=== PATIENT | female | born 1990 | race Caucasian/White ===

== ENCOUNTER 2018-11-17 09:31 | Emergency (ER) | payer BC, MEDICAID ==
[2018-11-17 09:43] VITALS: BP 133/88
--- NOTE | 2018-11-17 10:21 | ER Document Report ---
HPI - HPI Time Seen by Provider: 11/17/18 10:10 Pain Level: 3 Notes: 28-year-old female presents the ED for evaluation of sore throat, headache, sore throat and productive cough has been getting worse for the last 3 days but notably worse last night. Decreased eating and drinking without issues. Is tried [id number] medications without relief. Denies fevers but reports chills. No nausea vomiting or diarrhea, no neck pain, wheezing. has had sick contacts. Worse with time, nothing makes better. No rashes vaccinations up-to-date, last menstrual period was approximately 2 weeks ago. Denies fevers, chills, chest pain,palpitations, shortness of breath, dyspnea, nausea, vomiting, diarrhea, abdominal pain, hematuria,blurred vision, double vision, loss of vision, speech changes, LH, dizziness, syncope,wheezing, neck pain, weakness, bowel or bladder dysfunction, saddle anesthesia, numbness or tingling in bilateral upper or lower extremities equally, muscle paralysis, weakness in bilateral upper or lower extremities equally or rash. - REPRODUCTIVE Reproductive: DENIES: : - DERM Skin Color: Normal Past Medical History - General Information source: Patient - Social History Smoking Status: Never Smoker Chew tobacco use (# tins/day): No Frequency of alcohol use: None Family History: Reviewed & Not Pertinent Patient has suicidal ideation: No Patient has homicidal ideation: No Pulmonary Medical History: Reports: Hx Asthma Neurological Medical History: Reports: Hx Migraine Renal/ Medical History: Denies: Hx Peritoneal Dialysis GI Medical History: Reports: Hx Gastroesophageal Reflux Disease Psychiatric Medical History: Reports: Hx Attention Deficit Hyperactivity Disorder, Hx Bipolar Disorder, Hx Depression - depression last year., Hx Schizophrenia - Immunizations Hx Diphtheria, Pertussis, Tetanus Vaccination: Yes - Jan 2014 Vertical Provider Document - CONSTITUTIONAL Agree With Documented VS: Yes Notes: PHYSICAL EXAMINATION: GENERAL: Well-appearing, well-nourished and in no mild distress HEAD: Atraumatic, normocephalic. EYES: Pupils equal round and reactive to light, extraocular movements intact, conjunctiva are normal. ENT: TM intact with bilateral serous effusion, no erythema. Nares boggy bilaterally, oropharynx with erythema without exudates. Moist mucous membranes. NECK: Normal range of motion, supple without lymphadenopathy LUNGS: Breath sounds clear to auscultation bilaterally and equal. No wheezes rales or rhonchi. HEART: Regular rate and rhythm without murmurs ABDOMEN: Soft, nontender, nondistended abdomen. No guarding, no rebound. No masses appreciated. Female : deferred Musculoskeletal: Normal range of motion, no pitting or edema. No cyanosis. NEUROLOGICAL: Cranial nerves grossly intact. Normal speech, normal gait. Normal sensory, motor exams PSYCH: Normal mood, normal affect. SKIN: Warm, Dry, normal turgor, no rashes or lesions noted. - INFECTION CONTROL TRAVEL OUTSIDE OF THE [place] IN LAST 30 DAYS: No Course - Re-evaluation Re-evalutation: 11/17/18 10:20 Presentation is most consistent with a viral upper respiratory infection. Patient is overall well appearance, vitals within normal limits, well-hydrated. Patient denies any headache, neck pain, and has no evidence of meningismus on examination. Lungs are clear bilaterally. No evidence of respiratory distress. Based on clinical exam and history, I do not suspect an acute pneumonia, meningitis, strep pharyngitis, or an acute encephalitis. Rapid strep negative, chest x-ray negative for any acute findings. Will discharge patient with return precautions and followup recommendations. They are in agreement this plan have verbalized understanding return precautions. - Vital Signs Vital signs: Temp Pulse Resp BP Pulse Ox 98.2 F 94 17 133/88 H 97 11/17/18 09:42 11/17/18 09:42 11/17/18 09:42 11/17/18 09:42 11/17/18 09:42 Discharge - Discharge Clinical Impression: Viral URI with cough Condition: Stable Disposition: HOME, SELF-CARE Instructions: Viral Syndrome ([facility]), Upper Respiratory Infection, Infant or Child ([facility]), Upper Respiratory Illness ([facility]), Acetaminophen, Sore Throat ([facility]) Additional Instructions: Viral Syndrome The physician has diagnosed a viral infection. Viruses not only cause "colds," but can cause many different symptoms including generalized aching, fever, headache, cough, diarrhea, nausea, vomiting, and fatigue. The treatment, for the most part, is simply relief of symptoms. This means that antibiotics are usually not given. Rest, fluids, pain medications and, occasionally, medication for the specific symptoms that are most bothersome will be prescribed. Use good handwashing to avoid passing the virus to others. Shared toys should be cleaned with disinfectant. Clean the toilets, sinks, and counter surfaces in bathrooms. Launder clothing in hot water. Contact the physician if you develop any new or unusual symptoms such as severe headache, stiff neck, high fever, chest pain, productive cough, or shortness of breath. You should be rechecked if you don't see marked improvement within seven to 10 days. Rapid strep and your chest x-ray were negative for any acute findings. Follow-up with primary care provider in the next 24 to 48 hours. Return immediately for any new or worsening symptoms. Follow up with primary care provider, call tomorrow to make followup appointment. Prescriptions: Albuterol Sulfate [Proair Respiclick] 90 mcg IH Q4HP PRN #1 [email or web address] PRN Reason: Forms: Return to Work Referrals: EMILY MOELLER MD [ACTIVE STAFF] - Follow up in 3-5 days
--- NOTE | 2018-11-17 11:11 | RADIOLOGY REPORT (SQ) ---
EXAM DESCRIPTION: CHEST 2 VIEWS COMPLETED DATE/TIME: 11/17/2018 10:58 am REASON FOR STUDY: cough COMPARISON: 01/30/2013 EXAM PARAMETERS: NUMBER OF VIEWS: two views TECHNIQUE: Digital Frontal and Lateral radiographic views of the chest acquired. RADIATION DOSE: NA LIMITATIONS: none FINDINGS: LUNGS AND PLEURA: No opacities, masses or pneumothorax. No pleural effusion. MEDIASTINUM AND HILAR STRUCTURES: No masses or contour abnormalities. HEART AND VASCULAR STRUCTURES: Heart normal size. No evidence for failure. BONES: No acute findings. HARDWARE: None in the chest. OTHER: No other significant finding. IMPRESSION: NO ACUTE RADIOGRAPHIC FINDING IN THE CHEST. TECHNICAL DOCUMENTATION: JOB ID: [id number] [employer]- All Rights Reserved Reading location - IP/workstation name: [email or web address]
== END 2018-11-17 12:22 | disposition home or self-care (01) ==
LOC: EEVIPCON 09:31 → ER 09:31
DX: J06.9 Acute upper respiratory infection, unspecified (principal); R05 Cough; R51 Headache; J45.909 Unspecified asthma, uncomplicated
CPT/HCPCS: 71046; 87070; 87077; 87880; 99283

== ENCOUNTER 2018-12-24 13:57 | Emergency (ER) | payer MEDICAID ==
[2018-12-24 14:03] VITALS: BP 111/75
[2018-12-24] MEDS ORDERED: CEPHALEXIN 500 MG CAPSULE PO ONE (14:11)
[2018-12-24] MEDS ORDERED: DEXAMETHASONE SOD PHOSPHATE INJ 4 MG/1 ML VIAL IM ONE (14:11)
[2018-12-24] MEDS ORDERED: DIPHENHYDRAMINE HCL 25 MG CAPSULE PO ONE (14:11)
--- NOTE | 2018-12-24 14:15 | ER Document Report ---
HPI - HPI Patient complains to provider of: Poison mesha Time Seen by Provider: 12/24/18 14:07 Onset: Last week Onset/Duration: Persistent Quality of pain: No pain Pain Level: 1 - Itchy Context: This 28-year-old female presents to the emergency department via EMS for reports of poison mesha. Reports she was camping last week and was exposed to poison mesha. She been taking Benadryl and applying Caladryl without relief of symptoms. She has generalized poison mesha to bilateral upper and lower extremities. No fever vomiting diarrhea. Associated Symptoms: None Exacerbated by: Denies Relieved by: Denies Similar symptoms previously: No Recently seen / treated by doctor: No - CONSTITUTIONAL Constitutional: DENIES: Fever, Chills - REPRODUCTIVE Reproductive: DENIES: : Past Medical History - General Information source: Patient Last Menstrual Period: - Social History Smoking Status: Never Smoker Chew tobacco use (# tins/day): No Frequency of alcohol use: None Drug Abuse: None Family History: Reviewed & Not Pertinent Patient has suicidal ideation: No Patient has homicidal ideation: No Pulmonary Medical History: Reports: Hx Asthma Neurological Medical History: Reports: Hx Migraine Renal/ Medical History: Denies: Hx Peritoneal Dialysis GI Medical History: Reports: Hx Gastroesophageal Reflux Disease Psychiatric Medical History: Reports: Hx Attention Deficit Hyperactivity Disorder, Hx Bipolar Disorder, Hx Depression - depression last year., Hx Schizophrenia Past Surgical History: Reports: Other - Lung surgery - Immunizations Hx Diphtheria, Pertussis, Tetanus Vaccination: Yes - Jan 2014 Vertical Provider Document - CONSTITUTIONAL Agree With Documented VS: Yes Exam Limitations: No Limitations General Appearance: WD/WN, No Apparent Distress - INFECTION CONTROL TRAVEL OUTSIDE OF THE [place] IN LAST 30 DAYS: No - HEENT HEENT: Atraumatic, Normocephalic - NECK Neck: Supple - RESPIRATORY Respiratory: Breath Sounds Normal, No Respiratory Distress - CARDIOVASCULAR Cardiovascular: Regular Rate - MUSCULOSKELETAL/EXTREMETIES Musculoskeletal/Extremeties: MAEW, FROM, Non-Tender - NEURO Level of Consciousness: Awake, Alert, Appropriate Motor/Sensory: No Motor Deficit - DERM Integumentary: Warm, Dry, Rash - Scattered generalized rash noted to upper and lower extremities bilaterally, in the webs of her toes, No erythema warmth or discharge no open sores. Course - Re-evaluation Re-evalutation: 12/24/18 14:58 This 28-year-old female presents via EMS for poison mesha rash for 1 week. As I enter the exam room patient was going through the drawers pulling out supplies. She was instructed to not do this, supplies were returned. Patient reports she is Caladryl for the poison mesha rash without relief of symptoms. She was prescribed Decadron some clindamycin and instructed take Benadryl Burow solution Caladryl. She verbalized understanding to all instructions. Dictation of this chart was performed using voice recognition software; therefore, there may be some unintended grammatical errors. - Vital Signs Vital signs: Temp Pulse Resp BP Pulse Ox 98.5 F 74 18 111/75 96 12/24/18 14:02 12/24/18 14:02 12/24/18 14:02 12/24/18 14:02 12/24/18 14:02 Discharge - Discharge Clinical Impression: Poison mesha Condition: Stable Disposition: HOME, SELF-CARE Instructions: Clindamycin ([facility]), Use of Diphenhydramine, Poison Mesha ([facility]), Steroid Medication Injection Additional Instructions: *You have been treated for POISON MESHA *Take medication as prescribed, take benadryl as indicated *apply caladryl as indicated, burrows solution as indicated *Monitor your skin for signs of infection such as increasing pain, redness, swelling, warmth *Try not to itch. Take cool showers stay away from hot showers. Apply cool packs to areas that really itch. Cut your nails. *Follow up with a primary care provider within 1 week for recheck *Return to ED for signs of infection, worsening condition, changes, needs Prescriptions: Clindamycin HCl [Cleocin 150 mg Capsule] 150 mg PO Q6 #20 capsule
[2018-12-24] MEDS ORDERED: CLINDAMYCIN HCL 150 MG CAPSULE PO ONE (14:17)
== END 2018-12-24 14:30 | disposition home or self-care (01) ==
LOC: ER 13:57
DX: L23.7 Allergic contact dermatitis due to plants, except food (principal)
CPT/HCPCS: J3490 ×2; J1100; 96374; 99283

== ENCOUNTER 2018-12-26 21:25 | Emergency (ER) | payer MEDICAID ==
[2018-12-27 00:08] VITALS: BP 124/77
[2018-12-27] MEDS ORDERED: DIPHENHYDRAMINE HCL 50 MG CAPSULE PO ONE (00:16)
--- NOTE | 2018-12-27 00:21 | ER Document Report ---
HPI - HPI Patient complains to provider of: rash Time Seen by Provider: 12/27/18 00:06 Pain Level: 3 Context: Patient is a 28-year-old female presents to the emergency department for continued itching and "worse rash." Patient was seen at this facility on 12/24/2018 for poison marly. Was given a dose of Decadron in the emergency department and sent home with clindamycin some of her lesions were deemed to be potentially bacterial in nature. Patient states the rash has spread now to her lower chin. States it has spread now "all over my arms, all over my legs, my butt, and really bad on my back." Patient states she is been taking antibiotics as prescribed. States she is also been applying calamine lotion. Patient is denying any fevers, respiratory distress, vomiting. - REPRODUCTIVE Reproductive: DENIES: : Past Medical History - General Information source: Patient - Social History Smoking Status: Unknown if Ever Smoked Family History: Reviewed & Not Pertinent Pulmonary Medical History: Reports: Hx Asthma Neurological Medical History: Reports: Hx Migraine Renal/ Medical History: Denies: Hx Peritoneal Dialysis GI Medical History: Reports: Hx Gastroesophageal Reflux Disease Psychiatric Medical History: Reports: Hx Attention Deficit Hyperactivity Disorder, Hx Bipolar Disorder, Hx Depression - depression last year., Hx Schizophrenia Past Surgical History: Reports: Other - Lung surgery - Immunizations Hx Diphtheria, Pertussis, Tetanus Vaccination: Yes - Jan 2014 Vertical Provider Document - CONSTITUTIONAL Agree With Documented VS: Yes Notes: GENERAL: Alert, interacts well. No acute distress. HEAD: Normocephalic, atraumatic. EYES: Pupils equal, round, and reactive to light. Extraocular movements intact. ENT: Oral mucosa moist, tongue midline. NECK: Full range of motion. Supple. Trachea midline. LUNGS: Clear to auscultation bilaterally, no wheezes, rales, or rhonchi. No respiratory distress. HEART: Regular rate and rhythm. No murmur ABDOMEN: Soft, non-tender. Non-distended. Bowel sounds present in all 4 quadrants. EXTREMITIES: Moves all 4 extremities spontaneously. No edema, normal radial and dorsalis pedis pulses bilaterally. No cyanosis. BACK: no cervical, thoracic, lumbar midline tenderness. No saddle anesthesia, normal distal neurovascular exam. NEUROLOGICAL: Alert and oriented x3. Normal speech. cranial nerves II through XII grossly intact PSYCH: Normal affect, normal mood. SKIN: Warm, dry, normal turgor. Vesicular lesions noted all over patient's bilateral upper extremities and lower extremities. There are some excoriated lesions noted around patient's ankles, consistent with impetigo bullous. Patient also has distinct vesicular lesions and erythema noted on her left flank radiating around to her left abdomen. It does not cross her spine and does follow a dermatome. - INFECTION CONTROL TRAVEL OUTSIDE OF THE [place] IN LAST 30 DAYS: No Course - Re-evaluation Re-evalutation: 12/27/18 00:35 Patient is adamant that she was out walking around in the [facility] for "a long time." Which is where she feels as though she got the poison marly. States the rash in her left side did start yesterday and has intensified in pain, not necessarily itching. I discussed with patient use of oral steroids for continued care of her poison marly. I have also discussed potential diagnosis of shingles based on physical exam findings. Patient shows no signs of anaphylaxis. At this time will discharge with return precautions and follow-up recommendations. Verbal discharge instructions given a the bedside and opportunity for questions given. Medication warnings reviewed. Patient is in agreement with this plan and has verbalized understanding of return precautions and the need for primary care follow-up in the next 24-72 hours. This medical record was dictated with voice recognizing software. There may be grammatical, syntax errors that are unintended. - Vital Signs Vital signs: Temp Pulse Resp BP Pulse Ox 98.4 F 77 18 111/77 97 12/26/18 21:33 12/26/18 21:33 12/26/18 21:33 12/26/18 21:33 12/26/18 21:33 Discharge - Discharge Clinical Impression: Poison marly dermatitis Shingles Qualifiers: Herpes zoster complications: unspecified herpes zoster complication Qualified Code(s): B02.8 - Zoster with other complications Condition: Stable Disposition: HOME, SELF-CARE Instructions: Corticosteroid Medication ([facility]), Use of Diphenhydramine, Shingles ([facility]) Additional Instructions: As we discussed you have been seen and treated in the emergency department for poison marly. Based on part of your exam you may also have shingles. Please take pain medication as needed for generalized pain. Please continue to take 50 mg of Benadryl every 6 hours for generalized itching. Please take steroids as prescribed. Please take antiviral medications as prescribed. Please follow-up with your primary care provider in the next 24 to 48 hours. Please return to the emergency room for any further concerns. Prescriptions: Acyclovir [Acyclovir 400 mg Tablet] 800 mg PO Q4 7 Days tablet Hydrocodone/Acetaminophen [Morgan 5-325 mg Tablet] 1 tab PO Q6 PRN #20 tablet PRN Reason: Prednisone [Deltasone 20 mg Tablet] 20 mg PO DAILY 21 Days #42 tablet Forms: Return to Work
== END 2018-12-27 00:34 | disposition home or self-care (01) ==
LOC: ER 21:25
DX: L23.7 Allergic contact dermatitis due to plants, except food (principal); B02.8 Zoster with other complications; R21 Rash and other nonspecific skin eruption; J45.909 Unspecified asthma, uncomplicated
CPT/HCPCS: 99283

== ENCOUNTER 2019-03-06 13:01 | Emergency (ER) | payer MEDICAID ==
[2019-03-06] MEDS ORDERED: NORMAL SALINE 1000 ML 1,000 ML IV ONE (13:12)
--- NOTE | 2019-03-06 13:12 | ER Document Report ---
ED Medical Screen (RME) - General Chief Complaint: Drug Abuse Stated Complaint: WITHDRAWLS Time Seen by Provider: 03/06/19 13:08 Mode of Arrival: Ambulatory Information source: Patient Notes: 28-year-old female presented to ED for withdrawal from Suboxone and a abscess to her right buttocks. She is very tearful and anxious. She is concerned that her boyfriend does not know that she is here. We have put her opted out. She states she was using the Suboxone to try to get off of the crack in her urine. She states she used crack last last night and the heroin either last night or the night before she is not sure which. States she also uses marijuana use of any baths. States she does not drink alcohol states she does not smoke cigarettes. She states she has had a off and on. For the last couple days. She is on Zoloft and Latuda that are prescribed I have greeted and performed a rapid initial assessment of this patient. A comprehensive ED assessment and evaluation of the patient, analysis of test results and completion of medical decision making process will be conducted by an additional ED providers. TRAVEL OUTSIDE OF THE [place] IN LAST 30 DAYS: No - Related Data Allergies/Adverse Reactions: Penicillins Allergy (Unknown, Verified 03/06/19 13:08) Sulfa (Sulfonamide Antibiotics) Allergy (Unknown, Verified 03/06/19 13:08) Past Medical History Pulmonary Medical History: Reports: Hx Asthma Neurological Medical History: Reports: Hx Migraine Renal/ Medical History: Denies: Hx Peritoneal Dialysis GI Medical History: Reports: Hx Gastroesophageal Reflux Disease Psychiatric Medical History: Reports: Hx Attention Deficit Hyperactivity Disorder, Hx Bipolar Disorder, Hx Depression - depression last year., Hx Schizophrenia Past Surgical History: Reports: Other - Lung surgery - Immunizations Hx Diphtheria, Pertussis, Tetanus Vaccination: Yes - Jan 2014
[2019-03-06 14:06] LABS: ABSOLUTE BASOPHILS # (AUTO) 0.1 10^3/uL (0.0-0.2); ABSOLUTE EOSINOPHILS # (AUTO) 0.1 10^3/uL (0.0-0.6); ABSOLUTE LYMPHOCYTES (AUTO) 1.8 10^3/uL (0.5-4.7); ABSOLUTE NEUT (AUTO) 10.6 10^3/uL (1.7-8.2); BASOPHILS % (AUTO) 0.5 % (0-2); HEMATOCRIT 40.4 % (36.0-47.0); HEMOGLOBIN 13.3 g/dL (12.0-15.5); LYMPHOCYTES % (AUTO) 13.2 % (13-45); MEAN CORPUSCULAR HEMOGLOBIN 27.2 pg (27.0-33.4); MEAN CORPUSCULAR VOLUME 83 fl (80-97); MONOCYTES % (AUTO) 7.3 % (3-13); PLATELET COUNT 384 10^3/uL (150-450); RED CELL DISTRIBUTION WIDTH 13.3 % (11.5-14.0); TOTAL CELLS COUNTED % (AUTO) 100 %; WHITE BLOOD COUNT 13.5 10^3/uL (4.0-10.5)
[2019-03-06 14:30] LABS: ALBUMIN 3.3 g/dL (3.5-5.0); ALKALINE PHOSPHATASE 86 U/L (38-126); ASPARTATE AMINO TRANSFERASE 16 U/L (14-36); CARBON DIOXIDE 27 mmol/L (22-30); CHLORIDE 101 mmol/L (98-107)
[2019-03-06 14:50] LABS: APPEARANCE,URINE TURBID; BILIRUBIN,URINE NEGATIVE (NEGATIVE); COLOR,URINE YELLOW; GLUCOSE, URINE NEGATIVE (NEGATIVE); KETONES,URINE 20 mg/dL (NEGATIVE); LEUKOCYTE ESTERASE,URINE TRACE (NEGATIVE); NITRITE,URINE NEGATIVE (NEGATIVE); PROTEIN,URINE 30 mg/dL (NEGATIVE); URINE SPECIFIC GRAVITY 1.025; UROBILINOGEN,URINE NEGATIVE mg/dL (<2.0)
[2019-03-06] MEDS ORDERED: LIDOCAINE 1% INJ-PF (10 MG/ML) 30 ML SDV INJ ONE (14:54)
[2019-03-06 14:56] LABS: ANION GAP 10 (5-19); BILIRUBIN,TOTAL 0.3 mg/dL (0.2-1.3); BLOOD UREA NITROGEN 5 mg/dL (7-20); GLUCOSE 90 mg/dL (75-110); POTASSIUM 3.6 mmol/L (3.6-5.0)
[2019-03-06 14:57] LABS: ACETAMINOPHEN < 10 ug/mL (10-30); ALCOHOL < 10 mg/dL (NONE DETECTED)
[2019-03-06 14:58] LABS: SALICYLATE < 1.0 mg/dL (2.0-20.0)
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
[2019-03-06 15:07] LABS: URINE AMPHETAMINES SCREEN NEGATIVE; URINE BARBITURATES SCREEN NEGATIVE; URINE BENZODIAZEPINES SCREEN NEGATIVE; URINE COCAINE SCREEN UNCONFIRMED POSITIVE; URINE MARIJUANA (THC) SCREEN UNCONFIRMED POSITIVE; URINE METHADONE SCREEN NEGATIVE; URINE PHENCYCLIDINE SCREEN NEGATIVE
[2019-03-06 15:08] LABS: BILIRUBIN,DIRECT 0.1 mg/dL (0.0-0.4)
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
[2019-03-06] MEDS ORDERED: CLINDAMYCIN HCL 150 MG CAPSULE PO ONE (16:38)
[2019-03-06 18:03] VITALS: BP 130/76
--- NOTE | 2019-03-07 02:20 | EKG REPORT ---
SEVERITY:- BORDERLINE ECG - SINUS RHYTHM PROBABLE LEFT ATRIAL ABNORMALITY BORDERLINE T WAVE ABNORMALITIES : Confirmed by: Dario El 07-Mar-2019 02:18:33
== END 2019-03-06 18:07 | disposition home or self-care (01) ==
LOC: EEVIPCON 13:01 → ER 13:01
DX: F19.10 Other psychoactive substance abuse, uncomplicated (principal); L02.31 Cutaneous abscess of buttock; F31.9 Bipolar disorder, unspecified; F60.3 Borderline personality disorder; F17.200 Nicotine dependence, unspecified, uncomplicated; Z88.0 Allergy status to penicillin; Z88.2 Allergy status to sulfonamides
CPT/HCPCS: 93005; 99285; 96360; 36415; 87070; 87205; 80307 ×4; 84703; 85025; 87077; 80053; 81001; 87186; 93010; 10060; A6266; J3490 ×2; J7030

== ENCOUNTER → 2019-06-15 | Outpatient (CLI) | payer MEDICAID ==
--- NOTE | 2019-06-15 17:27 | RADIOLOGY REPORT (SQ) ---
EXAM DESCRIPTION: CT ABD/PELVIS NO ORAL OR IV COMPLETED DATE/TIME: 06/15/2019 5:12 pm REASON FOR STUDY: R10.9 UNSPECIFIED ABDOMINAL PAIN R10.9 UNSPECIFIED ABDOMINAL PAIN COMPARISON: None. TECHNIQUE: CT scan of the abdomen and pelvis performed without intravenous or oral contrast. Images reviewed with lung, soft tissue, and bone windows. Reconstructed coronal and sagittal MPR images revi ewed. All images stored on PACS. All CT scanners at this facility use dose modulation, iterative reconstruction, and/or weight based d osing when appropriate to reduce radiation dose to as low as reasonably achievable (ALARA). [facility]: Dose Right [facility]: CareDose [facility]: Dose Right [facility]: Teradose 4D [facility]: [employer] RADIATION DOSE: CT Rad equipment meets quality standard of care and radiation dose reduction techniq ues were employed. CTDIvol: 5.7 mGy. DLP: 300 mGy-cm.mGy. LIMITATIONS: None. FINDINGS: LOWER CHEST: Right lateral basilar subpleural scarring. NON-CONTRASTED LIVER, SPLEEN, ADRENALS: Evaluation limited by lack of IV contrast. No identified sign ificant masses. PANCREAS: No masses. No peripancreatic inflammatory changes. GALLBLADDER: No calcified stones. No inflammatory changes to suggest cholecystitis. RIGHT KIDNEY AND URETER: No cysts identified. No solid masses. No calcified stones. No hydronephrosis or hydroureter. LEFT KIDNEY AND URETER: No cysts identified. No solid masses. No calcified stones. No hydronephrosis or hydroureter. AORTA AND RETROPERITONEUM: No aneurysm. No retroperitoneal masses or adenopathy. BOWEL AND PERITONEAL CAVITY: No obvious masses or inflammatory changes. No free fluid. APPENDIX: Normal. PELVIS, BLADDER, AND ABDOMINAL WALL:No abnormal masses. No free fluid. Unremarkable bladder. BONES: No acute findings. OTHER: No other significant finding. IMPRESSION: NO ACUTE FINDINGS. TECHNICAL DOCUMENTATION: JOB ID: [id number] [place]-72 Quality ID # [id number]: Final reports with documentation of one or more dose reduction techniques (e.g., Au tomated exposure control, adjustment of the mA and/or kV according to patient size, use of iterative reconstruction technique) 2010 [employer]- All Rights Reserved Reading location - IP/workstation name: [email or web address]
== END ==
LOC: RAD 17:12
PROVIDERS: ATTEND Nurse Practitioner Family
DX: R10.9 Unspecified abdominal pain (principal)
CPT/HCPCS: 74176

== ENCOUNTER 2019-06-19 14:31 | Emergency (ER) | payer MEDICAID ==
--- NOTE | 2019-06-19 15:03 | ER Document Report ---
ED Medical Screen (RME) - General Chief Complaint: Wound Recheck Stated Complaint: POSSIBLE WOUND INFECTION Time Seen by Provider: 06/19/19 14:53 Primary Care Provider: ASHLEIGH GONZALEZ [Primary Care Provider] - Follow up as needed Mode of Arrival: Ambulatory Information source: Patient Notes: Patient presents with concerns of a possible abscess to the center of her chest. Reports she squeezed it yesterday and slept with an ice pack on her chest all day. Does not look like an abscess no induration. During assessment patient starts eating she feels tired not feeling quite right. Denies fever vomiting diarrhea. Has history of bipolar. I have greeted and performed a rapid initial assessment of this patient. A comprehensive ED assessment and evaluation of the patient, analysis of test results and completion of the medical decision making process will be conducted by additional ED providers. TRAVEL OUTSIDE OF THE [place] IN LAST 30 DAYS: No - Related Data Allergies/Adverse Reactions: Penicillins Allergy (Unknown, Verified 06/19/19 14:46) Sulfa (Sulfonamide Antibiotics) Allergy (Unknown, Verified 06/19/19 14:46) Past Medical History - Social History Drug Abuse: Marijuana Pulmonary Medical History: Reports: Hx Asthma Neurological Medical History: Reports: Hx Migraine Renal/ Medical History: Denies: Hx Peritoneal Dialysis GI Medical History: Reports: Hx Gastroesophageal Reflux Disease Psychiatric Medical History: Reports: Hx Attention Deficit Hyperactivity Disorder, Hx Bipolar Disorder, Hx Depression - depression last year., Hx Schizophrenia Past Surgical History: Reports: Other - Lung surgery - Immunizations Hx Diphtheria, Pertussis, Tetanus Vaccination: Yes - Jan 2014 Physical Exam - Vital signs Vitals: Temp Pulse Resp BP Pulse Ox 98.3 F 81 18 150/81 H 97 06/19/19 14:34 06/19/19 14:34 06/19/19 14:34 06/19/19 14:34 06/19/19 14:34 Course - Vital Signs Vital signs: Temp Pulse Resp BP Pulse Ox 98.3 F 81 18 150/81 H 97 06/19/19 14:34 06/19/19 14:34 06/19/19 14:34 06/19/19 14:34 06/19/19 14:34 Doctor's Discharge - Discharge Referrals: ASHLEIGH GONZALEZ [Primary Care Provider] - Follow up as needed
[2019-06-19 15:28] LABS: ABSOLUTE BASOPHILS # (AUTO) 0.1 10^3/uL (0.0-0.2); ABSOLUTE EOSINOPHILS # (AUTO) 0.5 10^3/uL (0.0-0.6); ABSOLUTE LYMPHOCYTES (AUTO) 2.2 10^3/uL (0.5-4.7); ABSOLUTE MONOCYTES (AUTO) 0.5 10^3/uL (0.1-1.4); ABSOLUTE NEUT (AUTO) 4.8 10^3/uL (1.7-8.2); BASOPHILS % (AUTO) 0.8 % (0-2); EOSINOPHILS % (AUTO) 6.7 % (0-6); HEMATOCRIT 41.2 % (36.0-47.0); HEMOGLOBIN 13.9 g/dL (12.0-15.5); LYMPHOCYTES % (AUTO) 27.2 % (13-45); MEAN CORPUSCULAR HEMOGLOBIN 28.3 pg (27.0-33.4); MEAN CORPUSCULAR HGB CONC 33.7 g/dL (32.0-36.0); MEAN CORPUSCULAR VOLUME 84 fl (80-97); MONOCYTES % (AUTO) 5.7 % (3-13); PLATELET COUNT 356 10^3/uL (150-450); RED BLOOD COUNT 4.91 10^6/uL (3.72-5.28); RED CELL DISTRIBUTION WIDTH 13.4 % (11.5-14.0); SEGMENTED NEUTROPHILS % (AUTO) 59.6 % (42-78); TOTAL CELLS COUNTED % (AUTO) 100 %
[2019-06-19 15:42] LABS: APPEARANCE,URINE CLEAR; BILIRUBIN,URINE NEGATIVE (NEGATIVE); COLOR,URINE COLORLESS; GLUCOSE, URINE NEGATIVE (NEGATIVE); KETONES,URINE NEGATIVE (NEGATIVE); LEUKOCYTE ESTERASE,URINE NEGATIVE (NEGATIVE); NITRITE,URINE NEGATIVE (NEGATIVE); PROTEIN,URINE NEGATIVE (NEGATIVE); URINE SPECIFIC GRAVITY 1.002; UROBILINOGEN,URINE NEGATIVE mg/dL (<2.0)
[2019-06-19 15:58] LABS: URINE AMPHETAMINES SCREEN NEGATIVE; URINE BARBITURATES SCREEN NEGATIVE; URINE BENZODIAZEPINES SCREEN NEGATIVE; URINE COCAINE SCREEN NEGATIVE; URINE MARIJUANA (THC) SCREEN NEGATIVE; URINE METHADONE SCREEN NEGATIVE; URINE PHENCYCLIDINE SCREEN NEGATIVE
[2019-06-19 15:58] LABS: ALBUMIN 3.4 g/dL (3.5-5.0); ALKALINE PHOSPHATASE 80 U/L (38-126); ANION GAP 7 (5-19); ASPARTATE AMINO TRANSFERASE 24 U/L (14-36); BILIRUBIN,DIRECT 0.2 mg/dL (0.0-0.4); BILIRUBIN,TOTAL 0.2 mg/dL (0.2-1.3); BLOOD UREA NITROGEN 10 mg/dL (7-20); CALCIUM 8.7 mg/dL (8.4-10.2); CARBON DIOXIDE 27 mmol/L (22-30); CHLORIDE 103 mmol/L (98-107); GLUCOSE 107 mg/dL (75-110); POTASSIUM 4.3 mmol/L (3.6-5.0); TOTAL PROTEIN 6.2 g/dL (6.3-8.2)
--- NOTE | 2019-06-19 17:21 | ER Document Report ---
ED General - General Chief Complaint: Wound Recheck Stated Complaint: POSSIBLE WOUND INFECTION Time Seen by Provider: 06/19/19 14:53 Primary Care Provider: ASHLEIGH GONZALEZ [NO LOCAL MD] - Follow up as needed Mode of Arrival: Ambulatory Notes: CHIEF COMPLAINT: Scab on anterior chest, nausea HPI: 28-year-old female with history of impetigo type issues presenting for a scabbed area between the breasts over the last 3 days. States it was draining slightly, has stopped draining. She does admit to picking at the area. States she has had nausea with 2 episodes of vomiting in the last 2 to 3 days. No abdominal pain. No chest pain. No shortness of breath. No fever definitively. No dysuria. ROS: See HPI - all other systems were reviewed and are otherwise negative Constitutional: no fever Eyes: no drainage, no blurred vision ENT: no runny nose, no sore throat Cardiovascular: no chest pain Resp: no SOB, no cough GI: Positive vomiting, no diarrhea, no abdominal pain : no dysuria Integumentary: Positive rash Allergy: no hives Musculoskeletal: no extremity pain or swelling Neurological: no numbness/tingling, no weakness MEDICATIONS: I agree with the patient medications as charted by the RN. ALLERGIES: I agree with the allergies as charted by the RN. PAST MEDICAL HISTORY/PAST SURGICAL HISTORY: Reviewed and agree as charted by RN. SOCIAL HISTORY: Reviewed and agree as charted by RN. 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 CONSTITUTIONAL: Alert and oriented and responds appropriately to questions. Well-appearing; well-nourished, no acute distress HEAD: Normocephalic; atraumatic EYES: PERRL; Conjunctivae clear, sclerae non-icteric ENT: normal nose; no rhinorrhea; moist mucous membranes; pharynx without lesions noted NECK: Supple without meningismus; non-tender; no cervical lymphadenopathy, no masses CARD: symmetric distal pulses RESP: Normal chest excursion without splinting or tachypnea. ABD/GI: non-distended; soft, non-tender. BACK: The back appears normal EXT: Normal ROM in all joints; no cyanosis, no effusions, no edema SKIN: Normal color for age and race; warm; dry; good turgor; there is a very tiny erythematous area between the breasts but more adjacent to the right breast at approximately 3:00 overlying an old suture line or scar. No induration. No fluctuance. No surrounding cellulitis. No tenderness. Patient with multiple scabbed areas on the face consistent with acne or impetigo-like illness NEURO: Moves all extremities equally; Motor and sensory function intact PSYCH: The patient's mood and manner are appropriate. Grooming and personal hygiene are appropriate. MDM: 28-year-old female with a small scabbed area adjacent to the right breast but not involving the breast tissue itself. No induration or fluctuant area suggesting need for incision and drainage or imaging. Screening labs ordered from the triage process were all normal. Will place patient on Bactroban, she complains of nausea and had 2 episodes of vomiting this is subjective in nature. Will write patient for Zofran. Labs and urine do not show acute emergent abnormalities and she has no abdominal pain on exam. She was on the phone talking with her sister in no distress when I arrived for her exam TRAVEL OUTSIDE OF THE [place]. IN LAST 30 DAYS: No - Related Data Allergies/Adverse Reactions: Penicillins Allergy (Unknown, Verified 06/19/19 14:46) Sulfa (Sulfonamide Antibiotics) Allergy (Unknown, Verified 06/19/19 14:46) Past Medical History - General Information source: Patient - Social History Smoking Status: Current Every Day Smoker Drug Abuse: Marijuana Family History: Reviewed & Not Pertinent Patient has suicidal ideation: No Patient has homicidal ideation: No Pulmonary Medical History: Reports: Hx Asthma Neurological Medical History: Reports: Hx Migraine Renal/ Medical History: Denies: Hx Peritoneal Dialysis GI Medical History: Reports: Hx Gastroesophageal Reflux Disease Psychiatric Medical History: Reports: Hx Attention Deficit Hyperactivity Disorder, Hx Bipolar Disorder, Hx Depression - depression last year., Hx Schizophrenia Past Surgical History: Reports: Other - Lung surgery - Immunizations Hx Diphtheria, Pertussis, Tetanus Vaccination: Yes - Jan 2014 Physical Exam - Vital signs Vitals: Temp Pulse Resp BP Pulse Ox 98.3 F 81 18 150/81 H 97 06/19/19 14:34 06/19/19 14:34 06/19/19 14:34 06/19/19 14:34 06/19/19 14:34 Course - Vital Signs Vital signs: Temp Pulse Resp BP Pulse Ox 98.3 F 81 18 150/81 H 97 06/19/19 14:34 06/19/19 14:34 06/19/19 14:34 06/19/19 14:34 06/19/19 14:34 - Laboratory Result Diagrams: 06/19/19 15:15 06/19/19 15:15 Laboratory results interpreted by me: 06/19/19 06/19/19 15:15 15:15 Eos % (Auto) 6.7 H Total Protein 6.2 L Albumin 3.4 L Discharge - Discharge Clinical Impression: Impetigo Condition: Stable Disposition: HOME, SELF-CARE Additional Instructions: Take Zofran for nausea. Use the Bactroban as prescribed. Follow-up with your primary care provider for reevaluation call for appointment. Return for worsening redness or swelling or a definitive fever above 101 Prescriptions: Mupirocin Calcium [Bactroban 2% Cream 15 gm] 1 applic TP BID 7 Days #1 tube Ondansetron [Zofran Odt 4 mg Tablet] 1 - 2 tab PO Q4H PRN #15 tab.rapdis PRN Reason: For Nausea/Vomiting Referrals: [facility],NO [NO LOCAL MD] - Follow up as needed
[2019-06-19 17:52] VITALS: BP 127/78
== END 2019-06-19 17:53 | disposition home or self-care (01) ==
LOC: ER 14:31 → EEVIPCON 14:31 → ER 17:53
DX: L01.00 Impetigo, unspecified (principal); F17.200 Nicotine dependence, unspecified, uncomplicated; Z88.0 Allergy status to penicillin; Z88.2 Allergy status to sulfonamides
CPT/HCPCS: 36415; 80053; 80307; 81001; 81025; 85025; 86308; 99283

== ENCOUNTER 2019-06-24 12:08 | Emergency (ER) | payer MEDICAID ==
[2019-06-24 13:34] LABS: APPEARANCE,URINE CLEAR; BILIRUBIN,URINE NEGATIVE (NEGATIVE); COLOR,URINE COLORLESS; GLUCOSE, URINE NEGATIVE (NEGATIVE); KETONES,URINE NEGATIVE (NEGATIVE); LEUKOCYTE ESTERASE,URINE NEGATIVE (NEGATIVE); NITRITE,URINE NEGATIVE (NEGATIVE); PROTEIN,URINE NEGATIVE (NEGATIVE); URINE SPECIFIC GRAVITY 1.003; UROBILINOGEN,URINE NEGATIVE mg/dL (<2.0)
[2019-06-24 13:44] LABS: URINE AMPHETAMINES SCREEN NEGATIVE; URINE BARBITURATES SCREEN NEGATIVE; URINE BENZODIAZEPINES SCREEN NEGATIVE; URINE COCAINE SCREEN NEGATIVE; URINE MARIJUANA (THC) SCREEN NEGATIVE; URINE METHADONE SCREEN NEGATIVE; URINE PHENCYCLIDINE SCREEN NEGATIVE
[2019-06-24 13:59] LABS: ABSOLUTE BASOPHILS # (AUTO) 0.1 10^3/uL (0.0-0.2); ABSOLUTE EOSINOPHILS # (AUTO) 0.2 10^3/uL (0.0-0.6); ABSOLUTE LYMPHOCYTES (AUTO) 2.1 10^3/uL (0.5-4.7); ABSOLUTE MONOCYTES (AUTO) 0.6 10^3/uL (0.1-1.4); ABSOLUTE NEUT (AUTO) 7.8 10^3/uL (1.7-8.2); BASOPHILS % (AUTO) 0.8 % (0-2); EOSINOPHILS % (AUTO) 1.7 % (0-6); HEMATOCRIT 40.6 % (36.0-47.0); HEMOGLOBIN 13.8 g/dL (12.0-15.5); LYMPHOCYTES % (AUTO) 19.4 % (13-45); MEAN CORPUSCULAR HEMOGLOBIN 28.2 pg (27.0-33.4); MEAN CORPUSCULAR VOLUME 83 fl (80-97); MONOCYTES % (AUTO) 5.3 % (3-13); PLATELET COUNT 408 10^3/uL (150-450); RED CELL DISTRIBUTION WIDTH 13.8 % (11.5-14.0); SEGMENTED NEUTROPHILS % (AUTO) 72.8 % (42-78); TOTAL CELLS COUNTED % (AUTO) 100 %; WHITE BLOOD COUNT 10.7 10^3/uL (4.0-10.5)
[2019-06-24 14:13] LABS: ALBUMIN 3.9 g/dL (3.5-5.0); ALKALINE PHOSPHATASE 85 U/L (38-126); ANION GAP 8 (5-19); ASPARTATE AMINO TRANSFERASE 20 U/L (14-36); BILIRUBIN,DIRECT 0.3 mg/dL (0.0-0.4); BILIRUBIN,TOTAL 0.3 mg/dL (0.2-1.3); BLOOD UREA NITROGEN 8 mg/dL (7-20); CALCIUM 9.6 mg/dL (8.4-10.2); CARBON DIOXIDE 27 mmol/L (22-30); CHLORIDE 103 mmol/L (98-107); GLUCOSE 93 mg/dL (75-110); POTASSIUM 4.7 mmol/L (3.6-5.0)
[2019-06-24 14:14] LABS: ACETAMINOPHEN < 10 ug/mL (10-30); ALCOHOL < 10 mg/dL (NONE DETECTED); SALICYLATE < 1.0 mg/dL (2.0-20.0)
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
--- NOTE | 2019-06-24 14:53 | EKG REPORT ---
SEVERITY:- NORMAL ECG - SINUS RHYTHM : Confirmed by: Kaya Peter MD 24-Jun-2019 14:52:06
[2019-06-24] MEDS ORDERED: IBUPROFEN 600 MG TABLET PO ONE (15:04)
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
[2019-06-24] MEDS ORDERED: HYDROXYZINE PAMOATE 50 MG CAPSULE PO ONE (16:15)
[2019-06-24] MEDS ORDERED: HALOPERIDOL 5 MG TABLET PO ONE (16:51)
[2019-06-25 05:05] VITALS: BP 117/69
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
[2019-06-25] MEDS ORDERED: ACETAMINOPHEN 325 MG TABLET PO ONE (09:39)
--- NOTE | 2019-06-25 13:33 | ER Document Report ---
Doctor's Note Notes: 06/25/19 13:32 Patient is currently IVC'd and currently has placement at [place]. Upon evaluation patient is sitting upright on stretcher eating her lunch. I did provide her with apple juice. Patient was given Tylenol earlier for reported musculoskeletal pain. Patient is in understanding of plan of care. Patient no acute distress. Patient stable for transfer.
== END 2019-06-25 14:00 ==
LOC: ER 12:08
DX: F31.62 Bipolar disorder, current episode mixed, moderate (principal); F19.10 Other psychoactive substance abuse, uncomplicated; Z91.14 Patient's other noncompliance with medication regimen; Z88.0 Allergy status to penicillin; Z88.2 Allergy status to sulfonamides; F17.200 Nicotine dependence, unspecified, uncomplicated
CPT/HCPCS: 93005; 36415; 80307 ×4; 85025; 81025; 80053; 81001; 93010; J3490 ×4; 99285

== ENCOUNTER 2019-08-03 20:40 | Emergency (ER) | payer MEDICAID, OTHER ==
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
[2019-08-03 21:18] LABS: ABSOLUTE BASOPHILS # (AUTO) 0.1 10^3/uL (0.0-0.2); ABSOLUTE EOSINOPHILS # (AUTO) 0.4 10^3/uL (0.0-0.6); ABSOLUTE LYMPHOCYTES (AUTO) 3.8 10^3/uL (0.5-4.7); ABSOLUTE MONOCYTES (AUTO) 0.9 10^3/uL (0.1-1.4); ABSOLUTE NEUT (AUTO) 9.8 10^3/uL (1.7-8.2); BASOPHILS % (AUTO) 0.3 % (0-2); EOSINOPHILS % (AUTO) 2.4 % (0-6); HEMATOCRIT 35.4 % (36.0-47.0); LYMPHOCYTES % (AUTO) 25.5 % (13-45); MEAN CORPUSCULAR HEMOGLOBIN 27.9 pg (27.0-33.4); MEAN CORPUSCULAR VOLUME 82 fl (80-97); PLATELET COUNT 465 10^3/uL (150-450); RED BLOOD COUNT 4.31 10^6/uL (3.72-5.28); RED CELL DISTRIBUTION WIDTH 13.4 % (11.5-14.0); SEGMENTED NEUTROPHILS % (AUTO) 65.8 % (42-78); TOTAL CELLS COUNTED % (AUTO) 100 %; WHITE BLOOD COUNT 14.9 10^3/uL (4.0-10.5)
[2019-08-03 21:38] LABS: ALBUMIN 3.6 g/dL (3.5-5.0); ALKALINE PHOSPHATASE 102 U/L (38-126); ANION GAP 8 (5-19); ASPARTATE AMINO TRANSFERASE 17 U/L (14-36); BLOOD UREA NITROGEN 10 mg/dL (7-20); CALCIUM 9.2 mg/dL (8.4-10.2); CARBON DIOXIDE 25 mmol/L (22-30); CHLORIDE 107 mmol/L (98-107); GLUCOSE 127 mg/dL (75-110); POTASSIUM 3.9 mmol/L (3.6-5.0); TOTAL PROTEIN 6.6 g/dL (6.3-8.2)
[2019-08-03 22:12] LABS: APPEARANCE,URINE CLEAR; BILIRUBIN,URINE NEGATIVE (NEGATIVE); COLOR,URINE STRAW; GLUCOSE, URINE NEGATIVE (NEGATIVE); KETONES,URINE NEGATIVE (NEGATIVE); LEUKOCYTE ESTERASE,URINE TRACE (NEGATIVE); NITRITE,URINE NEGATIVE (NEGATIVE); PROTEIN,URINE NEGATIVE (NEGATIVE); URINE SPECIFIC GRAVITY 1.006; UROBILINOGEN,URINE NEGATIVE mg/dL (<2.0)
[2019-08-03 22:13] LABS: BILIRUBIN,TOTAL < 0.1 mg/dL (0.2-1.3)
[2019-08-03 22:14] LABS: ACETAMINOPHEN < 10 ug/mL (10-30); ALCOHOL < 10 mg/dL (NONE DETECTED); SALICYLATE < 1.0 mg/dL (2.0-20.0)
[2019-08-03 22:26] LABS: URINE AMPHETAMINES SCREEN NEGATIVE; URINE BARBITURATES SCREEN NEGATIVE; URINE BENZODIAZEPINES SCREEN NEGATIVE; URINE COCAINE SCREEN NEGATIVE; URINE METHADONE SCREEN NEGATIVE; URINE PHENCYCLIDINE SCREEN NEGATIVE
[2019-08-03 22:29] LABS: URINE MARIJUANA (THC) SCREEN UNCONFIRMED POSITIVE
--- NOTE | 2019-08-04 15:18 | ER Document Report ---
Doctor's Note Notes: 08/04/19 15:17 PHYSICAL EXAMINATION: GENERAL: Appears well, healthy, well-nourished, no acute distress. LUNGS: Equal breath sounds bilaterally and clear to auscultation. No wheezes rales or rhonchi. CARDIOVASCULAR: S1-S2, regular rate, regular rhythm. Radial pulses 2+, normal. ABDOMEN: Normoactive bowel sounds. Soft, nontender, no guarding, no rebound tenderness, and no masses palpated. PSYCH: Normal mood, normal affect. At this time, the patient will follow-up with her mental health outpatient. Denied any suicidal homicidal ideation at this time. Mental health has evaluated the patient and state that they are stable for discharge. Follow-up precautions were given. Verbal discharge instructions were given to the patient. They verbalized understanding. They are stable for discharge.
--- NOTE | 2019-08-04 15:55 | EKG REPORT ---
SEVERITY:- BORDERLINE ECG - SINUS RHYTHM PROBABLE LEFT ATRIAL ABNORMALITY : Confirmed by: Kaya Peter MD 04-Aug-2019 15:54:06
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
[2019-08-04 17:20] VITALS: BP 113/63
== END 2019-08-04 16:00 | disposition home or self-care (01) ==
LOC: ER 20:40
DX: R44.3 Hallucinations, unspecified (principal); J45.909 Unspecified asthma, uncomplicated; Z88.0 Allergy status to penicillin; Z88.2 Allergy status to sulfonamides
CPT/HCPCS: 36415; 80053; 80307; 81001; 85025; 93005; 93010; 99285

== ENCOUNTER 2019-08-18 22:07 | Emergency (ER) | payer MEDICAID ==
--- NOTE | 2019-08-18 22:30 | ER Document Report ---
ED General - General Chief Complaint: Possible Overdose Stated Complaint: POSSIBLE OVERDOSE Time Seen by Provider: 08/18/19 22:20 Notes: This 28-year-old woman presents to the emergency department via EMS with the concern of a possible overdose of unknown pills. She states she took approximately 4 unknown tablets yesterday. And she has been feeling tired today. She denies drowsiness or other systemic symptoms. Vital signs and QRS on tracing by EMS are normal. The patient does admit to using a white powdery substance, smoked with her boyfriend on 08/17/2019. She thinks it may have been crack or heroin. Patient states that she was sleeping in the hotel room when the police came, they then called EMS and she was transported to the emergency department for evaluation. TRAVEL OUTSIDE OF THE [place] IN LAST 30 DAYS: No - Related Data Allergies/Adverse Reactions: Penicillins Allergy (Unknown, Verified 08/18/19 22:13) Sulfa (Sulfonamide Antibiotics) Allergy (Unknown, Verified 08/18/19 22:13) Past Medical History - Social History Smoking Status: Unknown if Ever Smoked Family History: Reviewed & Not Pertinent Pulmonary Medical History: Reports: Hx Asthma Neurological Medical History: Reports: Hx Migraine Renal/ Medical History: Denies: Hx Peritoneal Dialysis GI Medical History: Reports: Hx Gastroesophageal Reflux Disease Psychiatric Medical History: Reports: Hx Attention Deficit Hyperactivity Disorder, Hx Bipolar Disorder, Hx Depression - depression last year., Hx Schizophrenia Past Surgical History: Reports: Other - Lung surgery - Immunizations Hx Diphtheria, Pertussis, Tetanus Vaccination: Yes - Jan 2014 Review of Systems - Review of Systems Notes: Constitutional: Negative for fever. HENT: Negative for sore throat. Eyes: Negative for visual changes. Cardiovascular: Negative for chest pain. Respiratory: Negative for shortness of breath. Gastrointestinal: Negative for abdominal pain, vomiting or diarrhea. Genitourinary: Negative for dysuria. Musculoskeletal: Negative for back pain. Skin: Negative for rash. Neurological: Negative for headaches, weakness or numbness. 10 point ROS negative except as marked above and in HPI. Physical Exam - Vital signs Vitals: Resp BP Pulse Ox 23 H 109/56 L 97 08/18/19 22:14 08/18/19 22:14 08/18/19 22:14 Course - Re-evaluation Re-evalutation: 08/19/19 02:24 Since resting quietly in the emergency department with no sedation or abnormal neurologic findings. She has been alert and cooperative throughout her ER stay. Urine drug screen is positive for cocaine and amphetamine. Chest x-ray is clear, there is no other abnormal - Vital Signs Vital signs: Temp Pulse Resp BP Pulse Ox 17 116/74 99 08/19/19 02:30 08/19/19 02:01 08/19/19 02:30 - Laboratory Result Diagrams: 08/18/19 22:15 08/18/19 22:15 Laboratory results interpreted by me: 08/18/19 08/18/19 08/18/19 22:15 22:15 22:15 WBC 11.9 H RDW 14.3 H Plt Count 463 H Salicylates < 1.0 L Acetaminophen < 10 L - Diagnostic Test Radiology reviewed: Pending - Chest x-ray: No acute infiltrate or effusion noted., Image reviewed - EKG Interpretation by Me EKG shows normal: Sinus rhythm - Rate of 88, no acute ST or T wave abnormalities seen. Discharge - Discharge Clinical Impression: Substance abuse Condition: Good Disposition: HOME, SELF-CARE Instructions: Cocaine Abuse ([facility]) Additional Instructions: You are seen and evaluated in the emergency department today for small overdose. Your urine drug screen is positive for cocaine and amphetamine-based substance. Please refrain from using illicit drugs and for your health and overall safety follow-up with your primary care doctor. HOME CARE INSTRUCTIONS & INFORMATION: Thank you for choosing us for your medical needs. We hope you're satisfied with the care you received. After you leave, you must properly care for your problem and, at the same time, observe its progress. Any condition can change. Some illnesses can change rapidly over hours or days. If your condition worsens, return to the Emergency Department or see your physician promptly. ABOUT YOUR X-RAYS AND EKG'S: If you had an EKG or X-rays taken, they have been read by the Emergency Physician. The X-rays and EKG's will also be read by a Radiologist or Jewelry Enameler within 24 hours. If discrepancies are noted, you will be notified by telephone. Please be certain the ED has a correct telephone number & address where you can be reached. Also, realize that some fractures or abnormalities do not show up on initial X-rays. If your symptoms continue, see your physician. ABOUT YOUR LABORATORY TEST: If you had laboratory tests, the results have been reviewed by the Emergency Physician. Some test results (for example cultures) may not be available for several days. You will be contacted if any test result shows you need additional treatment. Please be certain the ED has a correct telephone number and address where you can be reached. ABOUT YOUR MEDICATIONS: You will receive instructions on how to take your medicine on the prescription label you receive. Additional information may be provided by the Pharmacy. If you have questions afterwards, call the ED for clarification or further instructions. Some prescribed medications may cause drowsiness. Do not perform tasks such as driving a car or operating machinery without consulting your Pharmacist. If you feel you need a refill of pain medication, your condition will need re-evaluation. Please do not call for a refill of any medication. ABOUT YOUR SIGNATURE: Signature of this document acknowledges to followin. Understanding that you received emergency treatment and that you may be released before al medical problems are known or treated. Please be certain the ED has a correct phone number & address where you can be reached. 2. Acknowledgement that you will arrange for follow-up care as recommended. 3. Authorization for the Emergency Physician to provide information to your follow-up Physician in order to maximize your care. AT ANY TIME, IF YOUR SYMPTOMS CHANGE SIGNIFICANTLY OR WORSEN OR YOU DEVELOP NEW SYMPTOMS, RETURN TO THE EMERGENCY DEPARTMENT IMMEDIATELY FOR RE-EVALUATION. OUR GOAL IS TO PROVIDE EXCELLENT MEDICAL CARE! WE HOPE THAT WE HAVE MET YOUR EXPECTATIONS DURING YOUR EMERGENCY DEPARTMENT VISIT AND THAT YOU FEEL YOU HAVE RECEIVED EXCELLENT CARE!
[2019-08-18 22:31] LABS: ABSOLUTE BASOPHILS # (AUTO) 0.1 10^3/uL (0.0-0.2); ABSOLUTE EOSINOPHILS # (AUTO) 0.4 10^3/uL (0.0-0.6); ABSOLUTE MONOCYTES (AUTO) 0.8 10^3/uL (0.1-1.4); ABSOLUTE NEUT (AUTO) 7.7 10^3/uL (1.7-8.2); EOSINOPHILS % (AUTO) 3.5 % (0-6); HEMATOCRIT 38.3 % (36.0-47.0); HEMOGLOBIN 13.2 g/dL (12.0-15.5); LYMPHOCYTES % (AUTO) 24.8 % (13-45); MEAN CORPUSCULAR HEMOGLOBIN 28.5 pg (27.0-33.4); MEAN CORPUSCULAR HGB CONC 34.4 g/dL (32.0-36.0); MEAN CORPUSCULAR VOLUME 83 fl (80-97); MONOCYTES % (AUTO) 6.4 % (3-13); PLATELET COUNT 463 10^3/uL (150-450); RED BLOOD COUNT 4.62 10^6/uL (3.72-5.28); RED CELL DISTRIBUTION WIDTH 14.3 % (11.5-14.0); SEGMENTED NEUTROPHILS % (AUTO) 64.3 % (42-78); TOTAL CELLS COUNTED % (AUTO) 100 %; WHITE BLOOD COUNT 11.9 10^3/uL (4.0-10.5)
[2019-08-18 22:47] LABS: ACETAMINOPHEN < 10 ug/mL (10-30); ALBUMIN 3.9 g/dL (3.5-5.0); ALCOHOL < 10 mg/dL (NONE DETECTED); ALKALINE PHOSPHATASE 116 U/L (38-126); ANION GAP 6 (5-19); ASPARTATE AMINO TRANSFERASE 26 U/L (14-36); BILIRUBIN,DIRECT 0.2 mg/dL (0.0-0.4); BILIRUBIN,TOTAL 0.3 mg/dL (0.2-1.3); BLOOD UREA NITROGEN 12 mg/dL (7-20); CALCIUM 9.5 mg/dL (8.4-10.2); CARBON DIOXIDE 26 mmol/L (22-30); CHLORIDE 106 mmol/L (98-107); GLUCOSE 96 mg/dL (75-110); POTASSIUM 4.2 mmol/L (3.6-5.0); TOTAL PROTEIN 7.3 g/dL (6.3-8.2)
[2019-08-18 23:34] LABS: URINE BARBITURATES SCREEN NEGATIVE; URINE BENZODIAZEPINES SCREEN NEGATIVE; URINE MARIJUANA (THC) SCREEN NEGATIVE; URINE METHADONE SCREEN NEGATIVE; URINE PHENCYCLIDINE SCREEN NEGATIVE
[2019-08-18 23:36] LABS: URINE COCAINE SCREEN UNCONFIRMED POSITIVE
[2019-08-18 23:37] LABS: URINE AMPHETAMINES SCREEN UNCONFIRMED POSITIVE
--- NOTE | 2019-08-19 02:10 | RADIOLOGY REPORT (SQ) ---
EXAM DESCRIPTION: [facility]: XR CHEST 1 VIEW CLINICAL HISTORY: 28 years Female; Cough; COMPARISON: 01/30/2013 FINDINGS: Lungs: Lungs are clear, with no focal infiltrate, pneumothorax, or pleural effusion. Mediastinum: Mediastinum is within normal limits for this positioning. Bones: Bony structures are unremarkable. IMPRESSION: 1. No acute pulmonary findings.
[2019-08-19 03:01] VITALS: BP 116/74
[2019-08-19] MEDS ORDERED: ACETAMINOPHEN 325 MG TABLET PO ONE (03:08)
--- NOTE | 2019-08-19 16:53 | EKG REPORT ---
SEVERITY:- NORMAL ECG - SINUS RHYTHM : Confirmed by: Dario El 19-Aug-2019 16:52:39
== END 2019-08-19 03:55 | disposition home or self-care (01) ==
LOC: ER 22:07
DX: F19.90 Other psychoactive substance use, unspecified, uncomplicated (principal); R53.83 Other fatigue; J45.909 Unspecified asthma, uncomplicated; Z88.0 Allergy status to penicillin; Z88.2 Allergy status to sulfonamides
CPT/HCPCS: 93005; 99284; 36415; 82962; 80307 ×4; 85025; 80053; 71045; 93010; J3490

== ENCOUNTER 2019-08-19 10:40 | Emergency (ER) | payer MEDICAID ==
[2019-08-19 11:09] VITALS: BP 131/66
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
[2019-08-19] MEDS ORDERED: ACETAMINOPHEN 325 MG TABLET PO ONE (13:21)
== END 2019-08-19 17:21 | disposition home or self-care (01) ==
LOC: ER 10:40 → EDSTATUS 10:40 → ER 17:21
DX: S46.811A Strain of other muscles, fascia and tendons at shoulder and upper arm level, right arm, initial encounter (principal); X58.XXXA Exposure to other specified factors, initial encounter; J40 Bronchitis, not specified as acute or chronic; Z59.0 Homelessness; R06.02 Shortness of breath; M79.601 Pain in right arm; E66.9 Obesity, unspecified; F17.210 Nicotine dependence, cigarettes, uncomplicated; Z88.0 Allergy status to penicillin; Z88.2 Allergy status to sulfonamides
CPT/HCPCS: 99283; 36415; 82550; J3490